=== PATIENT | female | born 1960 | race Caucasian/White ===

== ENCOUNTER 2024-10-07 14:20 | Outpatient (AMB) | payer MEDICARE, MEDICAID, SELFPAY ==
[2024-10-07 14:55] VITALS: BP 129/81; PULSE 81; RESP 19; TEMP 36.6; O2SAT 91; BMI 41.5
--- NOTE | 2024-10-07 14:55 | ORTHONT_ITS ---
Vital signs 10/07/24 14:55 Height 1.65 m Height Method Stated Weight 113.115 kg Weight Measurement Method Standing Scale BMI 41.5 BP 129/81 Blood Pressure Source Automatic Cuff Blood Pressure Location Left Upper Arm Position Sitting Respiration 19 Pulse 81 Pulse Source Monitor Temp 97.8 F Temp Source Temporal Artery Scan Pulse Oximetry (%) 91 L Oxygen Delivery Method Room Air Med/Allergies Allergies & Medications Allergies codeine Allergy (Verified 10/07/24 14:56) Medication Reconciliation meloxicam 7.5 mg tablet 7.5 mg PO QDAY #45 tabs 03/21/24 [Rx Confirmed 10/07/24] amlodipine 10 mg tablet 10 mg PO QDAY 10/07/24 [History Confirmed 10/07/24] Subjective Visit Visit for: follow up visit Immunization / Flu Flu Vaccine in the Last 12 Months: No Flu Vaccine Exclusion Criteria: No Exclusion Criteria History of Present Illness Chief complaint: PRE OP RIGHT TKA Amie is a pleasant 63-year-old female who presents today for evaluation of her left knee And right knee. She has had knee pain for quite a while. She reports that she has had over 9 injections on the right and 0 injections on the left. She tried anti-inflammatories. She Has not tried physical therapy. She reports the pain is affecting her quality life and happiness. She is using a walker because of the knee pain. She has lost another 5 pounds since we last saw her Personal History Red flag PMH: smoker (non smoker ) and other (specify) (hypertension ) Pain Pain level (0-10): 5 Pain duration: CONSTANT Pain location: inside (medial) Pain quality: sharp and aching Pain timing: increases with activity Associated signs & symptoms: none Ambulatory data Ambulatory device: walker Treatments Improvement with previous injections: No Improvement with PT: No Improvement with NSAIDS: no Review of Systems Review of Systems: All systems negative unless otherwise noted in HPI. Exam Exam Patient is in no acute distress and is cooperative with the examination today. Breathing is nonlabored. In no respiratory distress. Bilateral extremities were evaluated and demonstrates sensation intact to light touch. Palpable pedal pulses are present. No significant edema is present. Bilateral hips were examined. The patient has no pain with log roll of the hips. Internal rotation to 30 degrees and external rotation to 30 degrees is painless. Negative FADIR. The left knee was examined. The left knee is in [varus] alignment. Range of motion from [0-115] degrees. Knee is stable to varus and valgus as well as AP translation with <5mm. Patient has a [negative] McMurrays. There is [no] pain with patellofemoral compression and [no] crepitus noted. The knee is [tender] to palpation [medially]. The right knee was also examined. The right knee is in [varus] alignment. Range of motion from [0-120] degrees. Knee is stable to varus and valgus as well as AP translation with <5mm. Patient has a [negative] McMurrays. There is [no] pain with patellofemoral compression and [no] crepitus noted. The knee is [tender] to palpation [medially]. Xrays were done at [facility] demonstrate severe bilateral knee osteoarthritis with complete joint space obliteration Assessment and Plan Problem List (1) Bilateral primary osteoarthritis of knee: Status: Acute Plan: Patient is a 63-year-old female with bilateral knee pain and bilateral knee osteoarthritis. The Pain is affecting her quality life and happiness. She has now tried over 10 injections, anti-inflammatories and she reports the pain is miserable. The pain is affecting her quality life. She is also made a significant attempt to lose weight and is lost about 10 pounds since we first saw her. At this point in time, I do think that a total knee replacement is reasonable option. The right side is significantly worse and we will start with this first. (2) Bilateral knee pain: Status: Acute Plan: The nature and purpose of the total knee replacement, alternative method(s) of treatment, the material risks involved, and the possibility of complications were fully explained to the patient. The patient does NOT have any of the following contraindications to TKA: - Active infection of the knee joint, OR - Active systemic bacteremia, OR - Active skin infection or open wound at surgical site, OR - Neuropathic arthritis, OR - Severe, rapidly progressive neurological disease, OR - Severe medical condition that makes risks of surgery outweigh the potential benefit The patient was told the most common risks and complications associated with a total knee replacement include, but are not limited to: blood clots in the leg, fatal pulmonary embolism, dislocation of the prosthesis, intraoperative and postoperative fractures of the femur or tibia, infection, failure of the prosthesis or grafting materials, complications from anesthesia, reactions to blood transfusions, postoperative leg length inequality, instability of the knee replacement, nerve damage or injury, vascular injury, delayed wound healing, infection, other injury or even . In addition, there are risks associated with anesthesia given during this operation. Also, the patient was told that after undergoing a total knee replacement there may still be persistent pain or disability. The patient was informed that the success of this operation in part depends upon the mechanical devices which are going to be implanted and that these devices can fail or malfunction, and may need to be repaired or replaced and there are no guarantees as to the longevity of this device or its parts and that it or its parts could fail prematurely. The patient was also notified that during the course of surgery, there may be a need to use bone graft from donors, and that any bone graft used will be carefully screened for communicable diseases, including AIDS, hepatitis, Ward-Creutzfeldt, or other diseases, but despite the screening procedures, there is a small chance that they could contract one of these diseases. Finally, the patient was asked to follow completely and fully with all advice and recommended treatments, and that recovery and ultimate outcome are affected by their compliance with recommended treatment. We discussed the risks, benefits and treatment alternatives, and the patient is interested in proceeding with surgery. We will try to set this up as expeditiously as possible. Advanced Care Planning Discussion Advance care planning discussed with:: patient Office Procedures GNS Level of Care Nursing/Assessment Patient Status: Established Patient Nursing Assessment/Reassesment: Medication Reconciliation, Update PMH in EMR and Vital Signs Coordination of Care: Complex Care and Chronic Disease 1-5, Education Complex Pt/Fam, Consent,records obtained, informed consent, 1 Ins Authorization, Results/Orders obtained and Staff clarify orders Established Patient Charge Established Patient Point Assignment: 110 Established Patient Point Charge: EP Level 3 (80-115) Past Medical History Past Medical History Have you ever been diagnosed with any of the following: Respiratory Problems Cough: No Wheezing: No Smoking: No Smoking Cessation Counseling: No Smoking Exposure: No Tobacco Use: No Clubbing: No
== END 2024-10-07 15:21 | disposition home or self-care (01) ==
LOC: HODSRG 14:20
PROVIDERS: PCP Licensed Practical Nurse; Referring Provider Licensed Practical Nurse; Supervising Provider Orthopaedic Surgery Adult Reconstructive Orthopaedic Surgery; Visit Provider Orthopaedic Surgery Adult Reconstructive Orthopaedic Surgery
DX: M17.0 Bilateral primary osteoarthritis of knee (principal); M25.561 Pain in right knee; M25.562 Pain in left knee
CPT/HCPCS: 99213; G0463

== ENCOUNTER → 2024-10-14 | Outpatient (CLI) | payer MEDICARE, MEDICAID, SELFPAY ==
--- NOTE | 2024-10-14 | XR_ITS ---
Examination: CT right lower extremity, without contrast. 2-D sagittal reconstructions. 2-D coronal reconstructions. 3-D reconstructions. Date and time of exam:October 14, 2024 1342 hours INDICATIONS: Right knee pain osteoarthritis 2 years CTDI: vol (mGy):15.7 DLP: (mGycm):1063 Technique: Multiple 1.25 mm axial sections of the right lower extremity without intravenous contrast have been obtained. 2-D sagittal and coronal reconstructions have been obtained. 3-D reconstructions have been obtained. Low dose protocols were performed. One or more of the following dose reduction techniques were used; automated exposure control, adjustment of the mA and/or KV according to patient size, use of iterative reconstruction technique. Findings: Prominent osteopenia Mild narrowing right hip joint No hip fracture or hip dislocation Advanced tricompartment osteoarthritis right knee, severe narrowing medial joint space No fracture No patellar dislocation IMPRESSION: Advanced tricompartment osteoarthritis, severe narrowing medial joint space
== END | disposition home or self-care (01) ==
PROVIDERS: Referring Provider Orthopaedic Surgery Adult Reconstructive Orthopaedic Surgery; Visit Provider Orthopaedic Surgery Adult Reconstructive Orthopaedic Surgery
DX: M17.11 Unilateral primary osteoarthritis, right knee (principal); M25.861 Other specified joint disorders, right knee
CPT/HCPCS: 73700

== ENCOUNTER → 2024-10-22 | Day surgery (SDC) | payer MEDICARE, MEDICAID, SELFPAY ==
--- NOTE | 2024-10-21 06:30 | EKG_ITS ---
[facility] Test Date: 2024-10-21 Pat Name: FLORIDALMA MCKEON Department: Room: - Gender: Female Senior [employer] Database Developer: SAMIR : 1960 Requested By: Ricardo Hunt Order Number: [id number] Reading MD: Ricardo Hunt Measurements Intervals Grand Chain Rate: 83 P: 46 DC: 168 QRS: -12 QRSD: 102 T: -4 QT: 386 QTc: 454 Interpretive Statements SINUS RHYTHM No previous ECG available for comparison /store/S0/[id number]
[2024-10-21 10:17] VITALS: BMI 41.2
[2024-10-21 12:08] LABS: Basophils # (Auto) 0.1 Thou/mm3 (0.0-0.2); Basophils % (Auto) 1 % (0-2.5); Eosinophils # (Auto) 0.3 Thou/mm3 (0.0-0.5); Eosinophils % (Auto) 3 % (0-10); Hematocrit 39.9 % (36.0-46.0); Hemoglobin 13.5 g/dL (12.0-16.0); Immature Granulocytes % (Auto) 1 % (0-0); Immature Granulocytes Auto 0.05 Thou/mm3 (0.00-0.00); Lymphocytes # (Auto) 2.9 Thou/mm3 (1.0-4.8); Lymphocytes % (Auto) 31 % (10-50); Mean Corpuscular HGB Conc 33.8 g/dl (31.0-37.0); Mean Corpuscular Hemoglobin 29.3 pg (25.0-35.0); Mean Corpuscular Volume 87 fL (80-100); Monocytes # (Auto) 0.7 Thou/mm3 (0.0-0.8); Monocytes % (Auto) 8 % (0-12); Neutrophils # (Auto) 5.5 Thou/mm3 (1.8-7.7); Neutrophils % (Auto) 58 % (37-80); Nucleated Red Blood Cell % 0 /100 WBC (0); Platelet Count 229 Thou/mm3 (140-440); RDW Standard Deviation 42.4 fL (36.4-46.3); Red Blood Count 4.61 Miln/mm3 (4.00-5.20); White Blood Count 9.5 Thou/mm3 (3.6-11.0)
[2024-10-21 12:19] LABS: Alanine Aminotransferase 31 U/L (10-49); Albumin, Serum 4.6 gm/dL (3.4-4.8); Albumin/Globulin Ratio 1.7 (1.2-2.2); Alkaline Phosphatase 82 U/L (46-116); Anion Gap 9 (7-16); Aspartate Amino Transferase 28 U/L (0-34); BUN/Creatinine Ratio 16 Ratio (12-20); Bilirubin,Total 0.5 mg/dL (0.3-1.2); Blood Urea Nitrogen 13 mg/dL (9-23); Calcium 10.7 mg/dL (8.3-10.6); Calcium (Corrected) 10.7 mg/dL (8.5-10.1); Carbon Dioxide 28.4 mMol/L (20.0-31.0); Chloride 106 mMol/L (98-107); Creatinine (Component) 0.8 mg/dL (0.6-1.3); Estimated Creatinine Clearance 87.6 mL/min (>60); Globulin 2.7 gm/dL (2.3-3.5); Glucose 110 mg/dL (74-106); Osmolality,Calculated 286 (275-295); Potassium 4.3 mMol/L (3.4-5.1); Sodium 143 mMol/L (136-145); Total Protein 7.3 gm/dL (5.7-8.2); eGFR > 60 See Note
[2024-10-21 12:22] LABS: Partial Thromboplastin Time 25.4 Seconds (22.0-36.0); Prothrombin Time 11.4 Seconds (9.0-12.2)
--- NOTE | 2024-10-21 15:34 | SUR.PREOP ---
Cardiac records requested from Dr Landaverde office and waiting.
--- NOTE | 2024-10-22 05:50 | SUR.PREOP ---
Patient decided to cancel surgery. States nobody told her that anesthesiologist puts in a breathing tube. Educated patient regarding possibility of spinal and nerve block and made her aware that anesthesiologist would be in to talk to her about her options for anesthesia. Patient and daughter Beatris both state they don't want her to get a spinal and they don't want her to get any kind of breathing tube. Beatris expressed that her mother is in a lot of pain due to her bad shoulders, wrists, ankles and that this surgery is just gonna cause her mother more pain. Patient states she is very scared and states she just wants to leave. Charge nurse Dr. Hi Arias and OR staff made aware of patient's decision.
--- NOTE | 2024-10-22 14:42 | ESPR_ITS ---
Documentation for date of: 10/22/24 BRIEF PRE-OP NOTE: This patient was scheduled for R TKA at 7:[address] Do this morning but the patient cancelled her surgery. Pre-op, I was called at 6:27 am by OR patient safety officer that this patient does not want general or spinal anesthesia for her surgery. I called pre-op immediately and was informed the patient already walked out. I told them I was on my way to the hospital, and on my arrival the patient had already left and I never had the opportunity to see this patient and discuss anesthesia. Pre-op staff reported they attempted to educate the patient about anesthesia and informed the patient to discuss anesthesia with her anesthesia provider, however the patient left. The surgeon was aware of this. Ricardo Hunt MD
== END | disposition home or self-care (01) ==
LOC: S2EX 05:45
PROVIDERS: Anesthesiology; Referring Provider Orthopaedic Surgery Adult Reconstructive Orthopaedic Surgery; Visit Provider Orthopaedic Surgery Adult Reconstructive Orthopaedic Surgery
PROC: (CPT 27447; principal; 2024-10-22 07:30)
DX: M17.11 Unilateral primary osteoarthritis, right knee (principal); Z53.21 Procedure and treatment not carried out due to patient leaving prior to being seen by health care provider; Z01.810 Encounter for preprocedural cardiovascular examination
CPT/HCPCS: 27447; 36415; 80053; 85025; 85610; 85730; 93005; J7120

== ENCOUNTER 2025-01-06 09:25 | Outpatient (AMB) | payer MEDICARE, MEDICAID, SELFPAY ==
[2025-01-06 09:34] VITALS: BP 125/71; PULSE 90; RESP 19; TEMP 36.4; O2SAT 93; BMI 37.5
--- NOTE | 2025-01-06 09:34 | ORTHONT_ITS ---
Vital signs 01/06/25 09:34 Height 1.65 m Height Method Stated Weight 102.228 kg Weight Measurement Method Standing Scale BMI 37.5 BP 125/71 Blood Pressure Source Automatic Cuff Blood Pressure Location Left Upper Arm Position Sitting Respiration 19 Pulse 90 Pulse Source Monitor Temp 97.5 F Temp Source Temporal Artery Scan Pulse Oximetry (%) 93 L Oxygen Delivery Method Room Air Med/Allergies Allergies & Medications Allergies codeine Allergy (Verified 01/06/25 09:36) Medication Reconciliation amlodipine 10 mg tablet 10 mg PO QDAY 10/07/24 [History Confirmed 01/06/25] albuterol sulfate 90 mcg/actuation aerosol inhaler 1 inh inhalation QID PRN Shortness Of Breath Or Wheezing 10/21/24 [History Confirmed 01/06/25] aspirin 81 mg tablet,delayed release 81 mg PO QDAY 10/21/24 [History Confirmed 01/06/25] atorvastatin 40 mg tablet 40 mg PO QDAY 10/21/24 [History Confirmed 01/06/25] carvedilol 25 mg tablet 50 mg PO BID 10/21/24 [History Confirmed 01/06/25] docusate sodium 100 mg tablet 100 mg PO QDAY 10/21/24 [History Confirmed 01/06/25] ergocalciferol (vitamin D2) 1,250 mcg (50,000 unit) capsule (Vitamin D2) 1,250 mcg PO QWEEK 10/21/24 [History Confirmed 01/06/25] famotidine 20 mg tablet 20 mg PO QDAY 10/21/24 [History Confirmed 01/06/25] furosemide 20 mg tablet (Lasix) 20 mg PO QAM 10/21/24 [History Confirmed 01/06/25] hydroxyzine HCl 25 mg tablet 25 mg PO HS 10/21/24 [History Confirmed 01/06/25] ibuprofen 800 mg tablet 800 mg PO Q8H PRN Pain 10/21/24 [History Confirmed 01/06/25] lisinopril 40 mg tablet 40 mg PO QDAY 10/21/24 [History Confirmed 01/06/25] loratadine 10 mg tablet 10 mg PO QDAY 10/21/24 [History Confirmed 01/06/25] potassium chloride 8 mEq capsule,extended release 8 meq PO QDAY 10/21/24 [History Confirmed 01/06/25] sertraline 100 mg tablet 100 mg PO QDAY 10/21/24 [History Confirmed 01/06/25] sumatriptan succinate 100 mg tablet 100 mg PO Q2H PRN Migraine Headache 10/21/24 [History Confirmed 01/06/25] Exam Exam Patient is in no acute distress and is cooperative with the examination today. Breathing is nonlabored. In no respiratory distress. Bilateral extremities were evaluated and demonstrates sensation intact to light touch. Palpable pedal pulses are present. No significant edema is present. Bilateral hips were examined. The patient has no pain with log roll of the hips. Internal rotation to 30 degrees and external rotation to 30 degrees is painless. Negative FADIR. The left knee was examined. The left knee is in [varus] alignment. Range of motion from [0-115] degrees. Knee is stable to varus and valgus as well as AP translation with <5mm. Patient has a [negative] McMurrays. There is [no] pain with patellofemoral compression and [no] crepitus noted. The knee is [tender] to palpation [medially]. The right knee was also examined. The right knee is in [varus] alignment. Range of motion from [0-120] degrees. Knee is stable to varus and valgus as well as AP translation with <5mm. Patient has a [negative] McMurrays. There is [no] pain with patellofemoral compression and [no] crepitus noted. The knee is [tender] to palpation [medially]. Xrays were done at [facility] demonstrate severe bilateral knee osteoarthritis with complete joint space obliteration Assessment and Plan Problem List (1) Bilateral primary osteoarthritis of knee: Status: Acute Plan: Patient is a 63-year-old female with bilateral knee pain and bilateral knee osteoarthritis. We previously scheduled for her for surgery but she had a panic attack. She does not want surgery anymore and just wants injections. Recommend knee cortisone injection as patient would like to proceed with conservative treatment at this time. The risks and benefits of the procedure were reviewed with the patient and patient gave verbal consent to continue with the procedure. Procedure: performed by Dr. oD Using sterile technique the Right knee was thoroughly prepped with alcohol, and approximately 1 cc of Kenalog 40 mg/mL and 4 cc of 1% lidocaine was injected without resistance into the medial tibial femoral joint space. The patient tolerated the procedure. (2) Bilateral knee pain: Status: Acute Advanced Care Planning Discussion Advance care planning discussed with:: patient Office Procedures GNS Level of Care Nursing/Assessment Patient Status: Established Patient Nursing Assessment/Reassesment: Medication Reconciliation, Update PMH in EMR and Vital Signs Coordination of Care: Complex Care and Chronic Disease 1-5, Education Complex Pt/Fam, Consent,records obtained, informed consent, Results/Orders obtained and Staff clarify orders Established Patient Charge Established Patient Point Assignment: 95 Established Patient Point Charge: EP Level 3 (80-115) Surgical Proc/IM SQ injection Major Surgical Procedure: Yes (RIGHT KNEE INJECTION) MA Intake Visit Data Collection New Patient or Established: Established Patient (seen at [facility] within 3 years) Reason for Visit:: REQ RIGHT KNEE INJECTION Seen by Clinical Staff ONLY (RN/MA): No [employer] Required: No PCP or OBGYN visit in last 3 months: Yes Hx Now: No Do You Feel Safe at Home: Yes Authorities Contacted: N/A Questionairres Past Medical History Past Medical History Have you ever been diagnosed with any of the following: Neurological Problems Migraine: Yes Cardiology Problems Coronary Artery Disease: Yes Hypercholesterolemia: Yes Congestive Heart Failure: No Hypertension: Yes Respiratory Problems Chronic Obstructive Pulmonary Disease (COPD): No Cough: No Wheezing: No Smoking: No Smoking Cessation Counseling: No Smoking Exposure: No Tobacco Use: No Clubbing: No Stomache/Intestinal Problems Diverticulitis: Yes Obesity: Yes Genital/Urinary Problems Renal Disease: No Reproductive Problems Previous Pregnancies: Yes (9) Musculoskeletal Problems Arthritis: Yes Carpal Tunnel Syndrome: Yes (right) Endocrine Problems Diabetes Mellitus Type 1: No Diabetes Mellitus Type 2: No Psychologic Problems Depression: Yes Anxiety: Yes Other Problems Hospitalization: Yes (surgery) Shingles: No Blood Transfusions: No Anesthesia Reactions: No Chicken Pox: Yes Measles: Yes Cancer: No Surgical History Hysterectomy: Yes Subjective Visit Visit for: follow up visit, knee and injections Immunization / Flu Flu Vaccine in the Last 12 Months: No Flu Vaccine Exclusion Criteria: No Exclusion Criteria History of Present Illness Chief complaint: right knee osteoarthritis Patient is a 64-year-old female with right knee pain and right knee arthritis. We discussed nonoperative and operative options. She previously canceled her surgery because she had a panic attack. She just wants right knee injections today Pain Pain level (0-10): 8 Pain duration: CONSTANT Pain location: inside (medial) and anterior Pain quality: dull and aching Pain timing: increases with activity and stairs Associated signs & symptoms: weakness Ambulatory data Ambulatory device: walker Treatments Improvement with previous injections: No Improvement with PT: No Improvement with NSAIDS: no Review of Systems Review of Systems: All systems negative unless otherwise noted in HPI.
== END 2025-01-06 09:45 | disposition home or self-care (01) ==
PROVIDERS: Supervising Provider Orthopaedic Surgery Adult Reconstructive Orthopaedic Surgery; Visit Provider Orthopaedic Surgery Adult Reconstructive Orthopaedic Surgery
DX: M17.0 Bilateral primary osteoarthritis of knee (principal); M25.562 Pain in left knee; M25.561 Pain in right knee; I10 Essential (primary) hypertension; E78.00 Pure hypercholesterolemia, unspecified; I25.10 Atherosclerotic heart disease of native coronary artery without angina pectoris
CPT/HCPCS: 20610; 99213; J3301; J3490; G0463

== ENCOUNTER 2025-04-09 13:56 | Outpatient (AMB) | payer MEDICARE, SELFPAY ==
[2025-04-09 14:21] VITALS: BP 108/66; PULSE 92; RESP 17; TEMP 35.7; O2SAT 94; BMI 43.7
--- NOTE | 2025-04-09 14:21 | PD.ORTHCLVIS ---
Vital signs 04/09/25 14:21 Height 1.65 m Height Method Stated Weight 118.898 kg Weight Measurement Method Standing Scale BMI 43.7 BP 108/66 Blood Pressure Source Automatic Cuff Blood Pressure Location Left Upper Arm Position Sitting Respiration 17 Pulse 92 Pulse Source Monitor Temp 96.3 F L Temp Source Temporal Artery Scan Pulse Oximetry (%) 94 L Oxygen Delivery Method Room Air Med/Allergies Allergies & Medications Allergies codeine Allergy (Verified 04/09/25 14:22) Medication Reconciliation amlodipine 10 mg tablet 10 mg PO QDAY 10/07/24 [History Confirmed 04/09/25] albuterol sulfate 90 mcg/actuation aerosol inhaler 1 inh inhalation QID PRN Shortness Of Breath Or Wheezing 10/21/24 [History Confirmed 04/09/25] aspirin 81 mg tablet,delayed release 81 mg PO QDAY 10/21/24 [History Confirmed 04/09/25] atorvastatin 40 mg tablet 40 mg PO QDAY 10/21/24 [History Confirmed 04/09/25] carvedilol 25 mg tablet 50 mg PO BID 10/21/24 [History Confirmed 04/09/25] docusate sodium 100 mg tablet 100 mg PO QDAY 10/21/24 [History Confirmed 04/09/25] ergocalciferol (vitamin D2) 1,250 mcg (50,000 unit) capsule (Vitamin D2) 1,250 mcg PO QWEEK 10/21/24 [History Confirmed 04/09/25] famotidine 20 mg tablet 20 mg PO QDAY 10/21/24 [History Confirmed 04/09/25] furosemide 20 mg tablet (Lasix) 20 mg PO QAM 10/21/24 [History Confirmed 04/09/25] hydroxyzine HCl 25 mg tablet 25 mg PO HS 10/21/24 [History Confirmed 04/09/25] ibuprofen 800 mg tablet 800 mg PO Q8H PRN Pain 10/21/24 [History Confirmed 04/09/25] lisinopril 40 mg tablet 40 mg PO QDAY 10/21/24 [History Confirmed 04/09/25] loratadine 10 mg tablet 10 mg PO QDAY 10/21/24 [History Confirmed 04/09/25] potassium chloride 8 mEq capsule,extended release 8 meq PO QDAY 10/21/24 [History Confirmed 04/09/25] sertraline 100 mg tablet 100 mg PO QDAY 10/21/24 [History Confirmed 04/09/25] sumatriptan succinate 100 mg tablet 100 mg PO Q2H PRN Migraine Headache 10/21/24 [History Confirmed 04/09/25] Exam Exam Patient is in no acute distress and is cooperative with the examination today. Breathing is nonlabored. In no respiratory distress. Bilateral extremities were evaluated and demonstrates sensation intact to light touch. Palpable pedal pulses are present. No significant edema is present. Bilateral hips were examined. The patient has no pain with log roll of the hips. Internal rotation to 30 degrees and external rotation to 30 degrees is painless. Negative FADIR. The left knee was examined. The left knee is in [varus] alignment. Range of motion from [0-115] degrees. Knee is stable to varus and valgus as well as AP translation with <5mm. Patient has a [negative] McMurrays. There is [no] pain with patellofemoral compression and [no] crepitus noted. The knee is [tender] to palpation [medially]. The right knee was also examined. The right knee is in [varus] alignment. Range of motion from [0-120] degrees. Knee is stable to varus and valgus as well as AP translation with <5mm. Patient has a [negative] McMurrays. There is [no] pain with patellofemoral compression and [no] crepitus noted. The knee is [tender] to palpation [medially]. Xrays were done at [facility] demonstrate severe bilateral knee osteoarthritis with complete joint space obliteration Assessment and Plan Problem List (1) Bilateral primary osteoarthritis of knee: Status: Acute Plan: Patient is a 63-year-old female with bilateral knee pain and bilateral knee osteoarthritis. We previously scheduled for her for surgery but she had a panic attack. She does not want surgery anymore and just wants injections. Recommend knee cortisone injections as patient would like to proceed with conservative treatment at this time. The risks and benefits of the procedure were reviewed with the patient and patient gave verbal consent to continue with the procedure. Procedure: performed by Dr. Do Using sterile technique the Bilateral knees were thoroughly prepped with alcohol, and approximately 1 cc of Kenalog 40 mg/mL and 4 cc of 1% lidocaine was injected into each knee without resistance into the medial tibial femoral joint space. The patient tolerated the procedure. (2) Bilateral knee pain: Status: Acute Advanced Care Planning Discussion Advance care planning discussed with:: patient Office Procedures GNS Level of Care Nursing/Assessment Patient Status: Established Patient Nursing Assessment/Reassesment: Medication Reconciliation, Update PMH in EMR and Vital Signs Coordination of Care: Complex Care and Chronic Disease 1-5, Education Complex Pt/Fam, Consent,records obtained, informed consent, Results/Orders obtained and Staff clarify orders Established Patient Charge Established Patient Point Assignment: 95 Established Patient Point Charge: EP Level 3 (80-115) Surgical Proc/IM SQ injection Major Surgical Procedure: Yes (BILATERAL KNEE INJECTION) Medication Given Medication Given Medication Given: Yes Documented Dose Given: 8 Route: Infiitration Medication Given Medication Given Medication Given: Yes Documented Dose Given: 2 Route: Infiitration Office Meds Xylocaine 10 mg/mL (1 %) injection solution Performing Provider: Juan Do MD Performing Location: [facility] Administered by: Juan Do MD on 04/09/25 14:39 Dose Route Admin Location Dispensed Lot Number Expiration Date [facility] [place] [employer] 40 mL Infiltration 40 mL [id number] 03/11/28 96002-072-15 [facility] triamcinolone acetonide 40 mg/mL suspension for injection Performing Provider: Juan Do MD Performing Location: [facility] Administered by: Juan Do MD on 04/09/25 14:39 Dose Route Admin Location Dispensed Lot Number Expiration Date [facility] [place] [employer] 80 mg intra-articular 2 mL [id number] 11/10/26 0281-0366-61 [employer] [facility] Intake Visit Data Collection New Patient or Established: Established Patient (seen at [facility] within 3 years) Reason for Visit:: 3 MNTH RT KNEE INJECTION Seen by Clinical Staff ONLY (RN/MA): No Staff Climate Scientist Required: No PCP or OBGYN visit in last 3 months: Yes Hx Now: No Do You Feel Safe at Home: Yes Authorities Contacted: N/A Questionairres Past Medical History Past Medical History Have you ever been diagnosed with any of the following: Neurological Problems Migraine: Yes Cardiology Problems Coronary Artery Disease: Yes Hypercholesterolemia: Yes Congestive Heart Failure: No Hypertension: Yes Respiratory Problems Chronic Obstructive Pulmonary Disease (COPD): No Cough: No Wheezing: No Smoking: No Smoking Cessation Counseling: No Smoking Exposure: No Tobacco Use: No Clubbing: No Stomache/Intestinal Problems Diverticulitis: Yes Obesity: Yes Genital/Urinary Problems Renal Disease: No Reproductive Problems Previous Pregnancies: Yes (9) Musculoskeletal Problems Arthritis: Yes Carpal Tunnel Syndrome: Yes (right) Endocrine Problems Diabetes Mellitus Type 1: No Diabetes Mellitus Type 2: No Psychologic Problems Depression: Yes Anxiety: Yes Other Problems Hospitalization: Yes (surgery) Shingles: No Blood Transfusions: No Anesthesia Reactions: No Chicken Pox: Yes Measles: Yes Cancer: No Surgical History Hysterectomy: Yes Subjective Visit Visit for: knee (RIGHT KNEE INJECTION ) Immunization / Flu Flu Vaccine in the Last 12 Months: No Flu Vaccine Exclusion Criteria: Refused by Patient History of Present Illness Chief complaint: right knee osteoarthritis Patient is a 64-year-old female with right knee pain and right knee arthritis. We discussed nonoperative and operative options. She previously canceled her surgery because she had a panic attack. She would like bilateral knee injections today Personal History Red flag PMH: none Pain Pain level (0-10): 9 Pain duration: FEW YEARS Pain location: anterior Pain quality: aching Pain timing: night Associated signs & symptoms: weakness Ambulatory data Ambulatory device: walker Walking distance (minutes): 1 Treatments Number of previous injections: 6 (MEDICATION ONLY LAST ABOUT A WEEK ) Improvement with previous injections: No Number of Physical Therapy sessions: 0 Improvement with PT: No Improvement with NSAIDS: n/a Review of Systems Review of Systems: All systems negative unless otherwise noted in HPI.
--- NOTE | 2025-04-09 14:34 | XR_ITS ---
Examination: Bilateral knees 2 views Right lateral knee left lateral knee 2 views Bilateral axial knees single view TECHNIQUE: Bilateral AP knees standing single view, bilateral PA knees standing single view flexion Standing right lateral knee left lateral knee 2 views Bilateral axial knees single view total 5 views Exam date and time: April 09, 2025 1444 hours INDICATIONS: Bilateral knee pain beginning several years ago. FINDINGS: Prominent osteopenia Bilateral severe narrowing medial joint spaces, [id number] Bilateral advanced osteoarthritis lateral patellofemoral joints No fractures IMPRESSION: Bilateral advanced tricompartment osteoarthritis, including severe narrowing, [id number] medial joint spaces
== END 2025-04-09 14:45 | disposition home or self-care (01) ==
LOC: HODSRG 13:56
PROVIDERS: Supervising Provider Orthopaedic Surgery Adult Reconstructive Orthopaedic Surgery; Visit Provider Orthopaedic Surgery Adult Reconstructive Orthopaedic Surgery
DX: M17.0 Bilateral primary osteoarthritis of knee (principal)
CPT/HCPCS: 20610; 73564; 99213; J3301; J3490; G0463

== ENCOUNTER 2025-07-14 08:44 | Outpatient (AMB) | payer MEDICARE, SELFPAY ==
--- NOTE | 2025-07-14 09:05 | PD.ORTHCLVIS ---
Vital signs 07/14/25 09:10 Height 1.65 m Height Method Stated Weight 117.736 kg Weight Measurement Method Standing Scale BMI 43.2 BP 120/76 Blood Pressure Source Automatic Cuff Blood Pressure Location Left Upper Arm Position Sitting Respiration 18 Pulse 87 Pulse Source Monitor Temp 97.4 F Temp Source Temporal Artery Scan Pulse Oximetry (%) 92 L Oxygen Delivery Method Room Air Med/Allergies Allergies & Medications Allergies codeine Allergy (Verified 07/14/25 09:10) Medication Reconciliation amlodipine 10 mg tablet 10 mg PO QDAY 10/07/24 [History Confirmed 07/14/25] albuterol sulfate 90 mcg/actuation aerosol inhaler 1 inh inhalation QID PRN Shortness Of Breath Or Wheezing 10/21/24 [History Confirmed 07/14/25] aspirin 81 mg tablet,delayed release 81 mg PO QDAY 10/21/24 [History Confirmed 07/14/25] atorvastatin 40 mg tablet 40 mg PO QDAY 10/21/24 [History Confirmed 07/14/25] carvedilol 25 mg tablet 50 mg PO BID 10/21/24 [History Confirmed 07/14/25] docusate sodium 100 mg tablet 100 mg PO QDAY 10/21/24 [History Confirmed 07/14/25] ergocalciferol (vitamin D2) 1,250 mcg (50,000 unit) capsule (Vitamin D2) 1,250 mcg PO QWEEK 10/21/24 [History Confirmed 07/14/25] famotidine 20 mg tablet 20 mg PO QDAY 10/21/24 [History Confirmed 07/14/25] furosemide 20 mg tablet (Lasix) 20 mg PO QAM 10/21/24 [History Confirmed 07/14/25] hydroxyzine HCl 25 mg tablet 25 mg PO HS 10/21/24 [History Confirmed 07/14/25] ibuprofen 800 mg tablet 800 mg PO Q8H PRN Pain 10/21/24 [History Confirmed 07/14/25] lisinopril 40 mg tablet 40 mg PO QDAY 10/21/24 [History Confirmed 07/14/25] loratadine 10 mg tablet 10 mg PO QDAY 10/21/24 [History Confirmed 07/14/25] potassium chloride 8 mEq capsule,extended release 8 meq PO QDAY 10/21/24 [History Confirmed 07/14/25] sertraline 100 mg tablet 100 mg PO QDAY 10/21/24 [History Confirmed 07/14/25] sumatriptan succinate 100 mg tablet 100 mg PO Q2H PRN Migraine Headache 10/21/24 [History Confirmed 07/14/25] Exam Exam Patient is in no acute distress and is cooperative with the examination today. Breathing is nonlabored. In no respiratory distress. Bilateral extremities were evaluated and demonstrates sensation intact to light touch. Palpable pedal pulses are present. No significant edema is present. Bilateral hips were examined. The patient has no pain with log roll of the hips. Internal rotation to 30 degrees and external rotation to 30 degrees is painless. Negative FADIR. The left knee was examined. The left knee is in [varus] alignment. Range of motion from [0-115] degrees. Knee is stable to varus and valgus as well as AP translation with <5mm. Patient has a [negative] McMurrays. There is [no] pain with patellofemoral compression and [no] crepitus noted. The knee is [tender] to palpation [medially]. The right knee was also examined. The right knee is in [varus] alignment. Range of motion from [0-120] degrees. Knee is stable to varus and valgus as well as AP translation with <5mm. Patient has a [negative] McMurrays. There is [no] pain with patellofemoral compression and [no] crepitus noted. The knee is [tender] to palpation [medially]. Xrays were done at [facility] demonstrate severe bilateral knee osteoarthritis with complete joint space obliteration Assessment and Plan Problem List (1) Bilateral primary osteoarthritis of knee: Status: Acute Plan: Patient is a 63-year-old female with bilateral knee pain and bilateral knee osteoarthritis. We previously scheduled for her for surgery but she had a panic attack. She does not want to get surgery and wants to continue with conservative treatment Recommend knee cortisone injection as patient would like to proceed with conservative treatment at this time. The risks and benefits of the procedure were reviewed with the patient and patient gave verbal consent to continue with the procedure. Procedure: performed by Dr. Do Using sterile technique the left knee was thoroughly prepped with alcohol, and approximately 1 cc of Depo-Medrol 80mg/mL and 4 cc of 0.2% ropivacaine was injected without resistance into the medial tibial femoral joint space. The patient tolerated the procedure. Recommend knee cortisone injection as patient would like to proceed with conservative treatment at this time. The risks and benefits of the procedure were reviewed with the patient and patient gave verbal consent to continue with the procedure. Procedure: performed by Dr. Do Using sterile technique the Right knee was thoroughly prepped with alcohol, and approximately 1 cc of Depo-Medrol 80mg/mL and 4 cc of 0.2% ropivacaine was injected without resistance into the medial tibial femoral joint space. The patient tolerated the procedure. (2) Bilateral knee pain: Status: Acute Advanced Care Planning Discussion Advance care planning discussed with:: patient Office Procedures GNS Level of Care Nursing/Assessment Patient Status: Established Patient Nursing Assessment/Reassesment: Medication Reconciliation, Update PMH in EMR and Vital Signs Coordination of Care: Complex Care and Chronic Disease 1-5, Education Complex Pt/Fam, Consent,records obtained, informed consent, Results/Orders obtained and Staff clarify orders Established Patient Charge Established Patient Point Assignment: 95 Established Patient Point Charge: Level 3 (80-115) Surgical Proc/IM SQ injection Major Surgical Procedure: Yes (BILATERAL KNEE INJECTION) Medication Given Medication Given Medication Given: Yes Documented Dose Given: 1 Route: Infiitration Medication Given Medication Given Medication Given: Yes Documented Dose Given: 1 Route: Infiitration Medication Given Medication Given Medication Given: Yes Documented Dose Given: 4 Route: Infiitration Medication Given Medication Given Medication Given: Yes Documented Dose Given: 4 Route: Infiitration Office Meds methylprednisolone acetate 80 mg/mL suspension for injection Performing Provider: Juan Do MD Performing Location: [facility] Administered by: Juan Do MD on 07/14/25 09:27 Dose Route Admin Location Dispensed Lot Number Expiration Date [facility] [employer] 80 mg intra-articular 1 mL [id number] 04/10/27 [address]-0 [employer] methylprednisolone acetate 80 mg/mL suspension for injection Performing Provider: Juan Do MD Performing Location: [facility] Administered by: Juan Do MD on 07/14/25 09:27 Dose Route Admin Location Dispensed Lot Number Expiration Date [facility] [employer] 80 mg intra-articular 1 mL [id number] 04/10/27 [address]-9 [employer] ropivacaine (PF) 2 mg/mL (0.2 %) injection solution Performing Provider: Juan Do MD Performing Location: [facility] Administered by: Juan Do MD on 07/14/25 09:27 Dose Route Admin Location Dispensed Lot Number Expiration Date [employer] 20 mL Infiltration 20 mL [id number] 12/11/27 20052-899-34 [id number] ropivacaine (PF) 2 mg/mL (0.2 %) injection solution Performing Provider: Juan Do MD Performing Location: [facility] Administered by: Juan Do MD on 07/14/25 09:27 Dose Route Admin Location Dispensed Lot Number Expiration Date [place] [employer] 20 mL Infiltration 20 mL [id number] 12/11/27 58035-085-91 [facility] Int[facility] Visit Data Collection New Patient or Established: Established Patient (seen at [facility] within 3 years) Reason for Visit:: 3 MNTH RT KNEE INJECTION Seen by Clinical Staff ONLY (RN/MA): No Data Examination Clerk Required: No PCP or OBGYN visit in last 3 months: Yes Hx Now: No Do You Feel Safe at Home: Yes Authorities Contacted: N/A Questionairres Past Medical History Past Medical History Have you ever been diagnosed with any of the following: Neurological Problems Migraine: Yes Cardiology Problems Coronary Artery Disease: Yes Hypercholesterolemia: Yes Congestive Heart Failure: No Hypertension: Yes Respiratory Problems Chronic Obstructive Pulmonary Disease (COPD): No Cough: No Wheezing: No Smoking: No Smoking Cessation Counseling: No Smoking Exposure: No Tobacco Use: No Clubbing: No Stomache/Intestinal Problems Diverticulitis: Yes Obesity: Yes Genital/Urinary Problems Renal Disease: No Reproductive Problems Previous Pregnancies: Yes (9) Musculoskeletal Problems Arthritis: Yes Carpal Tunnel Syndrome: Yes (right) Endocrine Problems Diabetes Mellitus Type 1: No Diabetes Mellitus Type 2: No Psychologic Problems Depression: Yes Anxiety: Yes Other Problems Hospitalization: Yes (surgery) Shingles: No Blood Transfusions: No Anesthesia Reactions: No Chicken Pox: Yes Measles: Yes Cancer: No Surgical History Hysterectomy: Yes Subjective Visit Visit for: knee (RIGHT KNEE INJECTION ) Immunization / Flu Flu Vaccine in the Last 12 Months: No Flu Vaccine Exclusion Criteria: Refused by Patient History of Present Illness Chief complaint: right knee osteoarthritis Patient is a 64-year-old female with right knee pain and right knee arthritis. We discussed nonoperative and operative options. She previously canceled her surgery because she had a panic attack. She would like bilateral knee injections today Personal History Red flag PMH: none Pain Pain level (0-10): 9 Pain duration: FEW YEARS Pain location: anterior Pain quality: aching Pain timing: night Associated signs & symptoms: weakness Ambulatory data Ambulatory device: walker Walking distance (minutes): 1 Treatments Number of previous injections: 6 (MEDICATION ONLY LAST ABOUT A WEEK ) Improvement with previous injections: No Number of Physical Therapy sessions: 0 Improvement with PT: No Improvement with NSAIDS: n/a Review of Systems Review of Systems: All systems negative unless otherwise noted in HPI.
[2025-07-14 09:10] VITALS: BP 120/76; PULSE 87; RESP 18; TEMP 36.3; O2SAT 92; BMI 43.2
== END 2025-07-14 09:14 | disposition home or self-care (01) ==
PROVIDERS: Supervising Provider Orthopaedic Surgery Adult Reconstructive Orthopaedic Surgery; Visit Provider Orthopaedic Surgery Adult Reconstructive Orthopaedic Surgery
DX: M17.0 Bilateral primary osteoarthritis of knee (principal); M25.562 Pain in left knee; M25.561 Pain in right knee; I10 Essential (primary) hypertension; E78.00 Pure hypercholesterolemia, unspecified; I25.10 Atherosclerotic heart disease of native coronary artery without angina pectoris; E66.9 Obesity, unspecified; Z68.41 Body mass index [BMI] 40.0-44.9, adult
CPT/HCPCS: 20610; 99213; J1010; J2795; G0463